=== PATIENT | female | born 1965 | race Caucasian/White ===

== ENCOUNTER → 2018-09-03 | Outpatient (CLI) | payer OTHER ==
[~2018-09-03] MED LIST: OMNIPAQUE 350 MG/ML, 100ML BOTTLE ONE
== END | disposition home or self-care (01) ==
LOC: CFH 07:21
PROVIDERS: ATTEND Internal Medicine
DX: K40.90 Unilateral inguinal hernia, without obstruction or gangrene, not specified as recurrent (principal); K42.9 Umbilical hernia without obstruction or gangrene; K59.00 Constipation, unspecified; K76.0 Fatty (change of) liver, not elsewhere classified; I70.8 Atherosclerosis of other arteries; I70.0 Atherosclerosis of aorta; Z90.710 Acquired absence of both cervix and uterus
CPT/HCPCS: 74177; 82565; Q9967

== ENCOUNTER 2019-01-20 06:09 | Day surgery (SDC) | payer OTHER ==
[~2019-01-20] VITALS: Ht 154.9 cm; Wt 59.6 kg
[2019-01-20] MEDS ORDERED: BUPIVACAINE/PF-EPI 0.5% 1:200K ONE (06:43)
[2019-01-20] MEDS ORDERED: BACITRACIN 50,000 UNIT ONE (06:43)
[2019-01-20] MEDS ORDERED: LACTATED RINGERS 1,000 ML IV SCH (06:50)
[2019-01-20] MEDS ORDERED: LIDOCAINE-MPF 1%, 2ML INFIL ONE (07:00)
[2019-01-20] MEDS ORDERED: DULA1.5P INJ (07:07)
[2019-01-20] MEDS ORDERED: CELE200C PO (07:07)
[2019-01-20] MEDS ORDERED: EMPA25TA PO (07:07)
[2019-01-20] MEDS ORDERED: GABA300C10 PO (07:07)
[2019-01-20] MEDS ORDERED: estrodiol PO (07:07)
[2019-01-20] MEDS ORDERED: METF500T17 PO (07:07)
[2019-01-20] MEDS ORDERED: HYDR-3622 PO (07:07)
[2019-01-20] MEDS ORDERED: ATOR20TA37 PO (07:07)
[2019-01-20 07:22] VITALS: BP 119/82
[2019-01-20] MEDS ORDERED: FENTANYL PF 100 MCG/2ML ONE ×3 (07:23→08:45)
[2019-01-20] MEDS ORDERED: PROCHLORPERAZINE 5 MG/ML, 2ML IV PRN (07:30)
[2019-01-20] MEDS ORDERED: ACETAMINOPHEN 325 MG TABLET PO PRN (07:30)
[2019-01-20] MEDS ORDERED: PROMETHAZINE 25 MG/ML, 1ML IV PRN (07:30)
[2019-01-20] MEDS ORDERED: MEPERIDINE/PF 25MG/0.5ML IVPush PRN (07:30)
[2019-01-20] MEDS ORDERED: LABETALOL 5MG/ML, 20ML IV PRN (07:30)
[2019-01-20] MEDS ORDERED: HALOPERIDOL 5 MG/ML IV PRN (07:30)
[2019-01-20] MEDS ORDERED: hydrALAzine 20 MG/ML, 1ML IV PRN (07:30)
[2019-01-20] MEDS ORDERED: METOPROLOL 1 MG/ML, 5ML IV PRN (07:30)
[2019-01-20] MEDS ORDERED: DIPHENHYDRAMINE 50 MG/ML, 1ML IVPush PRN (07:30)
[2019-01-20] MEDS ORDERED: OXYcodone 5 MG/5 ML ORAL.SOL UDC PO PRN (07:30)
[2019-01-20] MEDS ORDERED: PROPOFOL 10 MG/ML, 20ML ONE (07:33)
[2019-01-20] MEDS ORDERED: ONDANSETRON 2MG/ML, 2ML ONE (07:33)
[2019-01-20] MEDS ORDERED: CEFAZOLIN 1,000 MG ONE (07:33)
[2019-01-20] MEDS ORDERED: DEXAMETHASONE 4 MG/ML, 1ML ONE (07:33)
[2019-01-20] MEDS ORDERED: SUCCINYLCHOLINE 20 MG/ML, 10ML ONE (07:33)
[2019-01-20] MEDS ORDERED: ROCURONIUM 10 MG/ML,10ML ONE (07:33)
[2019-01-20] MEDS ORDERED: KETOROLAC 30 MG/1 ML ONE (07:33)
[2019-01-20 07:39] LABS: ALANINE AMINOTRANSFERASE 20 U/L (12-78); ANION GAP 8 mmol/L (5-15); CHLORIDE 106 mmol/L (98-107); CREATININE 0.65 mg/dL (0.55-1.02)
[2019-01-20 07:41] LABS: ALKALINE PHOSPHATASE 65 U/L (45-117); BILIRUBIN,TOTAL 0.5 mg/dL (0.2-1.0); TOTAL PROTEIN 7.8 g/dL (6.4-8.2)
[2019-01-20] MEDS ORDERED: ACETAMINOPHEN 650 MG/20.3 ML UDC ONE (08:45)
[2019-01-20] MEDS ORDERED: HYDROmorphone 2 MG/ML, 1ML ONE (08:45)
[2019-01-20] MEDS ORDERED: OXYcodone 5 MG/5 ML ORAL.SOL UDC ONE (08:46)
[2019-01-20] MEDS: FENTANYL PF 100 MCG/2ML IV PRN ×2 (08:49→08:54)
[2019-01-20] MEDS: HYDROmorphone 2 MG/ML, 1ML IVPush PRN ×3 (09:03→09:18)
== END 2019-01-20 11:30 | disposition home or self-care (01) ==
LOC: OUT 06:09
PROVIDERS: ATTEND Surgery Vascular Surgery
DX: K40.90 Unilateral inguinal hernia, without obstruction or gangrene, not specified as recurrent (principal); K42.9 Umbilical hernia without obstruction or gangrene; E11.40 Type 2 diabetes mellitus with diabetic neuropathy, unspecified; E78.5 Hyperlipidemia, unspecified; F17.210 Nicotine dependence, cigarettes, uncomplicated; Z79.84 Long term (current) use of oral hypoglycemic drugs; Z79.891 Long term (current) use of opiate analgesic; Z79.899 Other long term (current) drug therapy; Z88.5 Allergy status to narcotic agent; Z90.710 Acquired absence of both cervix and uterus; Z80.0 Family history of malignant neoplasm of digestive organs; Z83.3 Family history of diabetes mellitus
CPT/HCPCS: 36415; 49505; 49585; 80053; 82962; 93005; C1781; J0330; J0690; J1100; J1170; J1885; J2405; J2704; J3010; J7120

== ENCOUNTER → 2021-02-01 | Outpatient (CLI) | payer OTHER ==
[~2021-02-01] MED LIST changes: +ATOR20TA37 PO; +CELE200C PO; +DULA1.5P INJ; +EMPA25TA PO; +GABA300C10 PO; +HYDR-3622 PO; +METF500T17 PO; +estrodiol PO
== END | disposition home or self-care (01) ==
LOC: CFH 07:33
PROVIDERS: ATTEND Internal Medicine
DX: R10.10 Upper abdominal pain, unspecified (principal)
CPT/HCPCS: 74160; 82565; Q9967